=== PATIENT | female | born 2000 | race Caucasian/White ===

== ENCOUNTER 2024-01-30 11:07 | Emergency (ER) | payer OTHER ==
--- NOTE | 2024-01-30 11:12 | ERPHSYRPT ---
- History of Present Illness Time Seen by Provider: 01/30/24 11:12 Source: patient Exam Limitations: no limitations Physician History: This is a 23-year-old white female patient of Dr. Laughlin who presents with right flank pain that has been intermittently present for 2 days. The pain began suddenly and was intermittent over the last 2 days. However, this morning the p ain was very intense and sharp and began approximately 6-6 30 this morning. Her level of pain was a 10 out of 10. The pain then decreased significantly but then returned suddenly. At the time of my examination with her she states the pain is still present but not a 10 out of 10 pain level. When the pain is intense she is nauseated. Currently, she has no nausea. Patient denies chest pain. Patient is currently on her menstrual period patient has no shortness of breath. Timing/Duration: day(s) (No injury 2 days ago) Method of Injury: other Severity of Pain-Max: moderate Severity of Pain-Current: mild Associated Symptoms: lower back pain Previous symptoms: no prior history (Right flank) Allergies/Adverse Reactions: No Known Drug Allergies Allergy (Verified 01/30/24 11:24) Travel Risk - International Travel Have you traveled outside of the country in past 3 weeks: No - Emerging Infectious Disease Are you exhibiting symptoms associated with any current EIDs: No - Review of Systems Constitutional: No Symptoms Eyes: No Symptoms Ears, Nose, & Throat: No Symptoms Respiratory: No Symptoms Cardiac: No Symptoms Abdominal/Gastrointestinal: No Symptoms Genitourinary Symptoms: Flank Pain (Right side) Musculoskeletal: No Symptoms Skin: No Symptoms Neurological: No Symptoms Psychological: No Symptoms Endocrine: No Symptoms Hematologic/Lymphatic: No Symptoms Immunological/Allergic: No Symptoms All Other Systems: Reviewed and Negative - Past Medical History Pertinent Past Medical History: No - Past Surgical History Past Surgical History: No - Nursing Vital Signs Nursing Vital Signs: Initial Vital Signs O2 Sat by Pulse Oximetry 99 01/30/24 11:22 Pain Scale Pain Intensity 0 - Physical Exam General Appearance: no apparent distress, alert, anxiety Eye Exam: PERRL/EOMI, eyes nml inspection Ears, Nose, Throat Exam: normal ENT inspection, moist mucous membranes Neck Exam: normal inspection, non-tender, supple, full range of motion Respiratory Exam: normal breath sounds, lungs clear, airway intact, No chest tenderness, No respiratory distress Cardiovascular Exam: regular rate/rhythm, normal heart sounds, normal peripheral pulses Gastrointestinal Exam: soft, normal bowel sounds, No tenderness Pelvic Exam: not done Rectal Exam: not done Back Exam: normal inspection, normal range of motion, CVA tenderness (Right side), No vertebral tenderness Extremity Exam: normal inspection, normal range of motion, pelvis stable Skin Exam: normal color, warm, dry Lymphatic Exam: No adenopathy SpO2 Interpretation: normal O2 Delivery: Room Air - Course Nursing assessment & vital signs reviewed: Yes Ordered Tests: Active Orders 24 hr Category Date Time Status IV Insertion STAT Care 01/30/24 11:38 Active ABDOMEN AND PELVIS W/0 CONTRAS [CT] Stat Exams 01/30/24 11:37 Completed AMYLASE Stat Lab 01/30/24 11:38 Completed CBC W DIFF Stat Lab 01/30/24 11:30 Completed CMP Stat Lab 01/30/24 11:38 Completed CULTURE,URINE Stat Lab 01/30/24 11:38 Received HCG QUALITATIVE, URINE Stat Lab 01/30/24 11:38 Completed LIPASE Stat Lab 01/30/24 11:38 Completed UA W/RFX UR CULTURE Stat Lab 01/30/24 11:38 Completed Medication Summary Generic Name Dose Route Start Last Admin Trade Name Freq PRN Reason Stop Dose Admin Sodium Chloride 1,000 mls @ 999 mls/hr 01/30/24 11:45 01/30/24 11:44 Sodium Chloride 0.9% 1000 Ml IV 02/29/24 11:44 999 mls/hr .Q1H1M CHARO Administration Ceftriaxone Sodium 1 gm in 100 mls @ 200 mls/hr 01/30/24 12:22 Rocephin 1 Gm / 100 Ml Nacl IV 01/30/24 12:51 STAT ONE Discontinued Medications Generic Name Dose Route Start Last Admin Trade Name Freq PRN Reason Stop Dose Admin Ceftriaxone Sodium Confirm 01/30/24 12:33 Rocephin 1 Gm / 100 Ml Nacl Administered 01/30/24 12:34 Dose 1 gm in 100 mls @ ud IV .STK-MED ONE Ketorolac Tromethamine 30 mg 01/30/24 11:39 01/30/24 11:44 Ketorolac Tromethamine 30 Mg/Ml Inj IV 01/30/24 11:40 30 mg STAT ONE Administration Ketorolac Tromethamine Confirm 01/30/24 11:40 Ketorolac Tromethamine 30 Mg/Ml Inj Administered 01/30/24 11:41 Dose 30 mg .ROUTE .STK-MED ONE Tamsulosin HCl 0.4 mg 01/30/24 12:31 Tamsulosin Hcl 0.4 Mg Cap PO 01/30/24 12:32 STAT ONE Tamsulosin HCl Confirm 01/30/24 12:33 Tamsulosin Hcl 0.4 Mg Cap Administered 01/30/24 12:34 Dose 0.4 mg .ROUTE .STK-MED ONE Lab/Rad Data: Laboratory Result Diagrams 01/30/24 11:30 01/30/24 11:38 Laboratory Results 01/30/24 01/30/24 01/30/24 Range/Units 11:38 11:38 11:38 WBC (4.0-10.5) x10^3/uL RBC (4.1-5.4) x10^6/uL Hgb (12.0-16.0) g/dL Hct (35-47) % MCV (78-100) fL MCH (26-32) pg MCHC (32-36) g/dL RDW (11.5-14.0) % Plt Count (150-450) x10^3/uL MPV (7.5-11.0) fL Gran % (36.0-66.0) % Immature Gran % (Auto) (0.00-0.4) % Nucleat RBC Rel Count (0.00-0.1) % Eos # (Auto) (0-0.5) x10^3/uL Immature Gran # (Auto) (0.00-0.03) x10^3u/L Absolute Lymphs (auto) (1.0-4.6) x10^3/uL Absolute Monos (auto) (0.0-1.3) x10^3/uL Absolute Nucleated RBC (0.00-0.01) x10^3u/L Lymphocytes % (24.0-44.0) % Monocytes % (0.0-12.0) % Eosinophils % (0.00-5.0) % Basophils % (0.0-0.4) % Absolute Granulocytes (1.4-6.9) x10^3/uL Basophils # (0-0.4) x10^3/uL Sodium 142 (135-145) mmol/L Potassium 3.7 (3.5-5.1) mmol/L Chloride 111 H (98-107) mmol/L Carbon Dioxide 22 (22-30) mmol/L Anion Gap 12.3 (5-15) MEQ/L BUN 10 (7-17) mg/dL Creatinine 0.70 (0.52-1.04) mg/dL Estimated GFR 123.8 ML/MIN Glucose 106 (74-106) mg/dL Calcium 9.2 (8.4-10.2) mg/dL Total Bilirubin 0.40 (0.2-1.3) mg/dL AST 24 (14-36) U/L ALT 16 (0-35) U/L Alkaline Phosphatase 67 (38-126) U/L Serum Total Protein 6.9 (6.3-8.2) g/dL Albumin 4.1 (3.5-5.0) g/dL Amylase 48 (30-110) U/L Lipase 36 (23-300) U/L Urine Color Yellow (Yellow) Urine Appearance Clear (Clear) Urine pH 6.0 (4.6-8.0) Ur Specific [place] 1.025 (1.005-1.030) Urine Protein Negative (Negative) Urine Glucose (UA) Negative (Negative) mg/dL Urine Ketones Trace A (Negative) Urine Blood Large A (Negative) Urine Nitrite Negative (Negative) Urine Bilirubin Negative (Negative) Urine Urobilinogen 0.2 (0.2) mg/dL Ur Leukocyte Esterase Trace A (Negative) U Hyaline Cast (Auto) 3-5 A (0-2) /LPF Urine Microscopic RBC 51-100 A (0-5) /HPF Urine Microscopic WBC 6-10 A (0-5) /HPF Ur Epithelial Cells None Seen (None Seen) /HPF Urine Bacteria None Seen (None Seen) /HPF Urine Culture Reflexed YES (NO) Urine HCG, Qual NEGATIVE (NEGATIVE) 01/30/24 Range/Units 11:30 WBC 8.1 (4.0-10.5) x10^3/uL RBC 4.55 (4.1-5.4) x10^6/uL Hgb 13.2 (12.0-16.0) g/dL Hct 39.4 (35-47) % MCV 86.6 (78-100) fL MCH 29.0 (26-32) pg MCHC 33.5 (32-36) g/dL RDW 13.0 (11.5-14.0) % Plt Count 251 (150-450) x10^3/uL MPV 11.8 H (7.5-11.0) fL Gran % 81.1 H (36.0-66.0) % Immature Gran % (Auto) 0.1 (0.00-0.4) % Nucleat RBC Rel Count 0.0 (0.00-0.1) % Eos # (Auto) 0.06 (0-0.5) x10^3/uL Immature Gran # (Auto) 0.01 (0.00-0.03) x10^3u/L Absolute Lymphs (auto) 0.96 L (1.0-4.6) x10^3/uL Absolute Monos (auto) 0.46 (0.0-1.3) x10^3/uL Absolute Nucleated RBC 0.00 (0.00-0.01) x10^3u/L Lymphocytes % 11.9 L (24.0-44.0) % Monocytes % 5.7 (0.0-12.0) % Eosinophils % 0.7 (0.00-5.0) % Basophils % 0.5 (0.0-0.4) % Absolute Granulocytes 6.52 (1.4-6.9) x10^3/uL Basophils # 0.04 (0-0.4) x10^3/uL Sodium (135-145) mmol/L Potassium (3.5-5.1) mmol/L Chloride (98-107) mmol/L Carbon Dioxide (22-30) mmol/L Anion Gap (5-15) MEQ/L BUN (7-17) mg/dL Creatinine (0.52-1.04) mg/dL Estimated GFR ML/MIN Glucose (74-106) mg/dL Calcium (8.4-10.2) mg/dL Total Bilirubin (0.2-1.3) mg/dL AST (14-36) U/L ALT (0-35) U/L Alkaline Phosphatase (38-126) U/L Serum Total Protein (6.3-8.2) g/dL Albumin (3.5-5.0) g/dL Amylase (30-110) U/L Lipase (23-300) U/L Urine Color (Yellow) Urine Appearance (Clear) Urine pH (4.6-8.0) Ur Specific [place] (1.005-1.030) Urine Protein (Negative) Urine Glucose (UA) (Negative) mg/dL Urine Ketones (Negative) Urine Blood (Negative) Urine Nitrite (Negative) Urine Bilirubin (Negative) Urine Urobilinogen (0.2) mg/dL Ur Leukocyte Esterase (Negative) U Hyaline Cast (Auto) (0-2) /LPF Urine Microscopic RBC (0-5) /HPF Urine Microscopic WBC (0-5) /HPF Ur Epithelial Cells (None Seen) /HPF Urine Bacteria (None Seen) /HPF Urine Culture Reflexed (NO) Urine HCG, Qual (NEGATIVE) - Progress Progress: improved, pain not gone completely, re-examined Progress Note: 01/30/24 11:57 Patient's medical issue is 1 of moderate complexity. The level of complexity in the workup performed is based on review of the patient's past medical history, review the patient's medication list, review the patient drug allergy list, history present illness and physical findings on examination. The workup in this patient includes placement of an intravenous line, infusion of normal saline solution, infusion of Toradol intravenously, CBC, CMP, urinalysis, urine test, amylase and lipase levels and CT scan of the abdomen pelvis without contrast. 01/30/24 12:[address] scan of the abdomen pelvis without contrast was interpreted by the radiologist and I reviewed the impression. There is a 1.1 cm ureteral calculus in the distal right ureter at the UVJ. There is mild hydronephrosis present and prominent right proximal ureter. There is evidence of obstructive uropathy 01/30/24 12:37 I interpreted the patient's laboratory data results. The patient has normal renal function. She has a mild urinary tract infection which we will treat with 1 g intravenous Rocephin here in the emergency department. I will remotely send a prescription of Flomax, [place] and Keflex to her pharmacy. We will attempt to arrange an outpatient appointment with urology. Counseled pt/family regarding: lab results, diagnosis, need for follow-up, rad results Medical Desision Making - Diagnostic Testing Diagnostic test were ordered, analyzed, and reviewed by me: Yes Radiological Interpretation: Reviewed by me, Teleradiologist Report - Risk of complications The pt has a mod risk of morbidity or mortality based on: Need for prescription drug management - Departure Departure Disposition: Home Clinical Impression: Right ureteral calculus, Obstructive uropathy, UTI (urinary tract infection) Condition: Stable Critical Care Time: No Referrals: ROHINI HOWARD MD [Primary Care Provider] - Follow up/PCP as directed Additional Instructions: Plenty of clear liquids. Take ibuprofen 600 mg orally 3 times a day with food for the next 5 days. Take your antibiotics as prescribed. Take your other medication as prescribed. Follow-up at your outpatient appointment with urology. If your symptoms worsen, you can always come to the emergency de partment here at [facility]. However, be aware we do not have urology. You may also proceed to [facility] where urology services are offered through the emergency department. Prescriptions: Oxycodone HCl/Acetaminophen [Percocet 5-325 mg Tablet] 1 each PO Q8H PRN PRN #6 tablet MDD 3 PRN Reason: Moderate To Severe Pain Tamsulosin HCl 0.4 mg [Flomax 0.4 MG] 0.4 mg PO DAILY #7 cap Cephalexin Mh 500 mg [Keflex 500 mg] 500 mg PO TID #21 cap
[2024-01-30 11:26] VITALS: TEMP 97.9
[2024-01-30] MEDS ORDERED: TORAdol 30 mg Injection ONE (11:40)
[2024-01-30] MEDS ORDERED: Sodium Chloride 0.9% 1000 ML 1,000 ML ONE (11:40)
[2024-01-30] MEDS: TORAdol 30 mg Injection IV ONE (11:44)
[2024-01-30] MEDS: Sodium Chloride 0.9% 1000 ML 1,000 ML IV SCH (11:44)
[2024-01-30 11:47] LABS: Absolute Neutrophil Ct (ANC) 6.52 x10^3/uL (1.4-6.9); BASOPHIL % 0.5 % (0.0-0.4); Basophil (Absolute #) 0.04 x10^3/uL (0-0.4); Eosinophil % 0.7 % (0.00-5.0); Eosinophil (Absolute #) 0.06 x10^3/uL (0-0.5); Hematocrit 39.4 % (35-47); Hemoglobin 13.2 g/dL (12.0-16.0); IMMATURE GRAN # 0.01 x10^3u/L (0.00-0.03); IMMATURE GRAN % 0.1 % (0.00-0.4); Lymphocyte (Absolute #) 0.96 x10^3/uL (1.0-4.6); Lymphocytes % 11.9 % (24.0-44.0); Mean Cell Volume 86.6 fL (78-100); Mean Corpuscular Hgb Concent. 33.5 g/dL (32-36); Mean Platelet Volume 11.8 fL (7.5-11.0); Monocyte (Absolute #) 0.46 x10^3/uL (0.0-1.3); Monocytes % 5.7 % (0.0-12.0); Neutrophil % 81.1 % (36.0-66.0); Platelet Count 251 x10^3/uL (150-450); Red Blood Count 4.55 x10^6/uL (4.1-5.4); White Blood Count 8.1 x10^3/uL (4.0-10.5)
[2024-01-30 11:50] LABS: HCG URINE TEST NEGATIVE (NEGATIVE)
[2024-01-30 11:56] LABS: ADD URINE CULTURE? YES (NO); Appearance Clear (Clear); Bacteria None Seen /HPF (None Seen); Bilirubin Negative (Negative); Blood Large (Negative); Epithelial Cells None Seen /HPF (None Seen); Glucose, Urine Negative (Negative); Ketones Trace (Negative); Leukocyte Esterase Trace (Negative); Nitrite Negative (Negative); Protein,Urine Dip Negative (Negative); RBC 51-100 /HPF (0-5); Specific Gravity 1.025 (1.005-1.030); Urobilinogen 0.2 mg/dL (0.2)
[2024-01-30 12:00] LABS: ALBUMIN 4.1 g/dL (3.5-5.0); ANION GAP 12.3 MEQ/L (5-15); BILIRUBIN,TOTAL 0.4 mg/dL (0.2-1.3); Calcium 9.2 mg/dL (8.4-10.2); Creatinine 1 0.7 mg/dL (0.52-1.04); EST GLOMERULAR FILTRATION RATE 123.8 ML/MIN; Potassium 3.7 mmol/L (3.5-5.1); Total Protein 6.9 g/dL (6.3-8.2)
--- NOTE | 2024-01-30 12:27 | XRAY ---
Indication: Flank pain. Multiple contiguous axial images obtained through the abdomen and pelvis without contrast. Comparison: None Lung bases clear. Heart not enlarged. Noncontrasted stomach and bowel loops appear nonobstructed. Appendix not visualized. 1 cm distal right UVJ calculus. Proximal right ureter is prominent up to 1.1 cm along with mild hydronephrosis consistent with obstructive uropathy. No free fluid/air. Left kidney demonstrates 5 mm nonobstructing calculus. Remaining liver, gallbladder, pancreas, spleen, adrenal glands, kidneys, ureters, bladder, uterus, and aorta are unremarkable for noncontrast exam. Osseous structures intact. Impression: 1 cm right UVJ calculus producing objective uropathy as detailed. Additional nonobstructing left renal micro-calculus.
[2024-01-30] MEDS ORDERED: Flomax 0.4 MG ONE (12:33)
[2024-01-30] MEDS ORDERED: ROCEPHIN 1 GM / 100 ML NaCl 1 GM/100 ML IVPB IV ONE (12:33)
[2024-01-30] MEDS: Flomax 0.4 MG PO ONE (12:36)
[2024-01-30] MEDS: ROCEPHIN 1 GM / 100 ML NaCl 1 GM/100 ML IVPB IV ONE (12:36)
[2024-01-30 13:03] VITALS: BP 123/89; PULSE 68; RESP 18; O2SAT 98
== END 2024-01-30 13:09 | disposition home or self-care (01) ==
LOC: ED 11:07
DX: N13.2 Hydronephrosis with renal and ureteral calculous obstruction (principal); N39.0 Urinary tract infection, site not specified; R10.9 Unspecified abdominal pain; Z79.891 Long term (current) use of opiate analgesic
CPT/HCPCS: 36000; 36415; 74176; 80053; 81001; 81025; 82150; 83690; 85025; 87086; 96365; 96374; 99284; J0696; J1885; A9270-GY